=== PATIENT | male | born 1990 | race Caucasian/White ===

== ENCOUNTER 2017-11-16 15:23 | Emergency (ER) | payer OTHER ==
[~2017-11-16] VITALS: Ht 172.7 cm; Wt 75.0 kg
[2017-11-16 15:28] VITALS: TEMP 99.2
[2017-11-16 17:30] LABS: BASO % 0.6 % (0.0-2.0); GRAN # 3.3 (1.4-6.5); GRAN % 69.5 % (42.2-75.2); HEMATOCRIT 40.8 % (42.0-52.0); HEMOGLOBIN 14.2 g/dl (13.5-18.0); LYMPH # 0.9 (1.2-3.4); LYMPH % 19.5 % (20.0-51.0); MEAN CELL VOLUME 92 fl (80.0-100.0); MEAN CORPUSCULAR HEMOGLOBIN 32 pg (27.0-31.0); MEAN CORPUSCULAR HGB CONC 35 g/dl (33.0-37.0); MEAN PLATELET VOLUME 10.5 fl (7.4-10.4); MONO # 0.5 (0.1-0.6); MONO % 10.2 % (1.7-9.3); PLATELET COUNT 227 K/mm3 (130-400); RED BLOOD COUNT 4.46 M/mm3 (4.20-5.60); WHITE BLOOD COUNT 4.7 K/mm3 (4.8-10.8)
[2017-11-16 17:41] LABS: COLLECTION METHOD CLEAN CATCH
[2017-11-16 17:54] LABS: AMORPHOUS CRYSTAL Present /uL; MUCOUS Present /lpf; PH 7 (5-8); SQUAMOUS EPITHELIAL None Seen /hpf; URINE APPEARANCE Turbid; URINE BACTERIA None Seen /hpf; URINE BILIRUBIN Negative (NEGATIVE); URINE BLOOD Negative (NEGATIVE); URINE COLOR Yellow; URINE GLUCOSE Negative (NEGATIVE); URINE KETONE Trace (NEGATIVE); URINE LEUKOCYTE ESTERASE Negative (NEGATIVE); URINE PROTEIN(semi-quant) 2+ (NEGATIVE); URINE WBC None Seen /hpf
[2017-11-16 18:04] LABS: AMPHETAMINE URINE NEGATIVE; BARBITURATES URINE NEGATIVE; BENZODIAZEPINES URINE NEGATIVE; BUPRENORPHINE URINE NEGATIVE; METHADONE URINE NEGATIVE; OPIATES URINE NEGATIVE; OXYCODONE URINE NEGATIVE; PHENCYCLIDINE URINE NEGATIVE; PROPOXYPHENE URINE NEGATIVE; THC CANNABINOIDS URINE NEGATIVE; TRICYCLIC ANTIDEPRESS URINE NEGATIVE
[2017-11-16 18:10] LABS: ALANINE AMINOTRANSFERASE 49 U/L (21-72); ALBUMIN 4.7 gm/dL (3.5-5.0); ALKALINE PHOSPHATASE 63 U/L (50-136); ANION GAP 12 mmol/L (7-16); BILIRUBIN,TOTAL 0.6 mg/dL (0.0-1.0); BLOOD UREA NITROGEN 11 mg/dL (9-20); CALCIUM 9.6 mg/dL (8.4-10.2); CARBON DIOXIDE 28 mmol/L (22-30); CHLORIDE 97 mmol/L (98-107); GLUCOSE 153 mg/dL (74-106); POTASSIUM 3.8 mmol/L (3.4-5.0); SODIUM 137 mmol/L (137-145); TOTAL PROTEIN 7.7 gm/dL (6.4-8.2)
[2017-11-16 18:26] LABS: ACETAMINOPHEN < 10 ug/mL (10-30); ALCOHOL(ethanol),MEDICAL < 10 mg/dL; SALICYLATE < 1.0 mg/dL
[2017-11-16 19:39] LABS: CHLAMYDIA/TRACH by PCR Male NOT DETECTED; Neisseria Gon by PCR Male NOT DETECTED
[2017-11-16 20:24] VITALS: BP 147/77; PULSE 85
== END 2017-11-16 20:25 | disposition home or self-care (01) ==
LOC: COL.ER 15:23
PROVIDERS: Nurse Practitioner
DX: F32.9 Major depressive disorder, single episode, unspecified (principal)